=== PATIENT | female | born 1990 | race Caucasian/White ===

== ENCOUNTER 2019-03-14 16:25 | Emergency (ER) | payer OTHER ==
[2019-03-14 16:31] VITALS: BP 117/71
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
== END 2019-03-14 17:19 | disposition home or self-care (01) ==
LOC: ED 16:25
DX: S06.0X9A Concussion with loss of consciousness of unspecified duration, initial encounter (principal); R51 Headache; V43.52XA Car driver injured in collision with other type car in traffic accident, initial encounter; Y92.9 Unspecified place or not applicable; Z87.891 Personal history of nicotine dependence; Z86.59 Personal history of other mental and behavioral disorders
CPT/HCPCS: 99282